=== PATIENT | female | born 1945 | race Caucasian/White ===

== ENCOUNTER 2020-12-23 00:04 | Emergency (ER) | payer MEDICARE, OTHER, SELFPAY ==
--- NOTE | ~2020-12-23 | XR_ITS ---
EXAMINATION: XR forearm RT 2V DATE: 12/23/2020 00:32 INDICATION: Right elbow injury post fall TECHNIQUE: AP an lateral views of the right forearm were obtained. COMPARISON: none FINDINGS: Transverse extra-articular supracondylar fracture of the distal right humerus. There is some external rotation along the fracture plane with anterior displacement of the medial side of the fracture. Nor mal alignment and joint spaces between the distal humeral fragment in the proximal radius and ulna. 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 IMPRESSION: 1. Mild external rotational displacement of a transverse supracondylar fracture of the distal right h umerus. Reviewed, dictated and finalized at location A. IMPRESSION: 1. Mild external rotational displacement of a transverse supracondylar fracture of the distal right humerus.
[2020-12-23 00:18] VITALS: BP 152/71; PULSE 86; RESP 18; TEMP 36.6; O2SAT 100
--- NOTE | 2020-12-23 00:58 | ED.UPPEXIN ---
HPI - Extremity Injury (Upper) General Chief Complaint: Extremity Injury, Upper Stated Complaint: FALL Source: patient and RN notes reviewed Mode of arrival: EMS Limitations: no limitations History of Present Illness HPI narrative: patient lost her balance getting into bed stepping over the dog then fell onto her right elbow. complaint: injury to: right and elbow Onset (ago): minute(s) (20) Other injuries: none Handedness: right Place: home Severity: severe Relieving factors: cold therapy Exacerbating factors: movement of extremity Context: fall Associated symptoms: heard/felt popping sensation Treatments prior to arrival: cold therapy Related Data Allergies Allergy/AdvReac Type Severity Reaction Status Date / Time No Known Allergies Allergy Verified 12/23/20 00:24 Review of Systems Review of Systems: All systems reviewed & are unremarkable except as noted in HPI and below PMFSH Past Medical History Medical History (Updated 12/23/20 @ 01:18 by Paco Barr MD) Hypertension Surgical History Surgical History (Updated 12/23/20 @ 01:18 by Paco Barr MD) H/O foot surgery left H/O wrist surgery left Social History Social History (Updated 12/23/20 @ 01:19 by Paco Barr MD) Smoking packs per day: 0.5 Smoking cigarettes per day: 10.0 Smoking status: Current every day smoker Tobacco type: cigarettes Alcohol intake: never Substance use: never Exam Const: General: healthy appearing and no acute distress Nutritional Appearance: well nourished and thin Orientation/consciousness: patient oriented x3 HENMT: Head: normal to inspection Ears: external ears normal Eyes: Conjunctivae: conjunctivae normal Pupils: Equal, round and reactive pupils present EOM: EOMs intact bilaterally Neck: Neck: normal visual inspection Resp: Effort & Inspection: normal respiratory effort Auscultation: clear to auscultation bilaterally Cardio: Rate: regular rate Rhythm: regular rhythm GI: GI Palp: Yes Soft to palpation and No Tenderness to palpation present (GI) Auscultation: normal bowel sounds Back/Spine/Pelvis: Cervical Spine: cervical ROM normal Thoracic/Lumbar Spine: thoraco-lumbar ROM normal Skin: General skin exam: normal color Rashes: no rashes Neuro: General: patient oriented x3 and moves all extremities Speech: normal speech Gait exam (Neuro): Normal gait present Extrem: General: normal exam except as noted Right upper extremity: elbow/forearm tenderness of the distal humerus Psych: Appearance: grossly normal and well kempt Mental Status: mental status grossly normal Affect: normal affect Attitude: cooperative Thought content: Yes Normal thought content present Course Course Emergency Course: initial fracture management completed in the ER. Vital Signs Vital signs: Vital Signs Temperature 36.6 C 12/23/20 00:18 Pulse Rate 86 12/23/20 00:18 Respiratory Rate 18 12/23/20 00:18 Blood Pressure 152/71 H 12/23/20 00:18 Pulse Oximetry 100 12/23/20 00:18 Temperature 36.6 C 12/23/20 01:24 Pulse Rate 97 12/23/20 01:24 Respiratory Rate 20 12/23/20 01:24 Blood Pressure 140/78 12/23/20 01:24 Pulse Oximetry 100 12/23/20 01:24 Procedures Orthopedic Splinting/Casting Injury #1: Splinting/Casting Date: 12/23/20 Splinting/Casting Time: 01:12 Side: right Upper Extremity Injury Location: elbow Upper Extremity Immobilizer: sling/shoulder immobilizer OCL: other ( Posterior mid humerus to mid forearm) Pre-Procedure Neuro Vascular Exam: normal Post-Procedure Neuro Vascular Exam: normal MDM - Extremity Injury (Upper) Imaging Data Radiologist's impression: Comminuted fracture of the lateral humeral condyle Discharge Plan Discharge Clinical Impression: Fracture of humerus Qualifiers: Encounter type: initial encounter Humerus Location: distal Fracture type: closed Fracture morphology: other f
[2020-12-23] MEDS: HYDROmorphone HCL INJ (*CRX) 2 MG/ML VIAL 1 MG IM (01:15)
[2020-12-23 01:24] VITALS: BP 140/78; PULSE 97; RESP 20; TEMP 36.6; O2SAT 100
== END 2020-12-23 01:32 | disposition home or self-care (01) ==
PROVIDERS: Emergency Provider Emergency Medicine; PCP Internal Medicine
DX: S42.491A Other displaced fracture of lower end of right humerus, initial encounter for closed fracture (principal); W19.XXXA Unspecified fall, initial encounter
CPT/HCPCS: 29105; 73090; 96372; 99283; 99284; A4565; J1170